=== PATIENT | male | born 1965 | race African-American/Black ===

== ENCOUNTER 2017-07-30 06:14 | Emergency (ER) | payer BC ==
[~2017-07-30] VITALS: Ht 180.3 cm; Wt 122.5 kg
[2017-07-30] MEDS ORDERED: 0.9 % SODIUM CHLORIDE 10 ML DISP.SYRIN. IV PRN (06:30)
[2017-07-30] MEDS ORDERED: IV NORMAL SALINE 1000ML BAG 1,000 ML IV SCH (06:30)
--- NOTE | 2017-07-30 06:36 | PHYS DOC ---
Past Medical History Past Medical History: Hypertension Past Surgical History: Other Additional Past Surgical Histo: rt arm, right knee Alcohol Use: Occasionally Drug Use: None Adult General Chief Complaint Chief Complaint: WEAKNESS/GENERALIZED HPI HPI Is a pleasant 51-year-old -[place] male with history of hypertension hyperlipidemia who presents with a one-week history of weakness that began after 2 episodes of chest pain. Patient describes chest pain that woke him from sleep about a week ago described as chest pressure in the left chest with radiation underneath the left breast the left minutes excellent. He describes 2 distinct episodes lasting about 30 minutes one of which he actually called EMS who was dispatched to his home. They did an EKG on the scene advised him to go to the hospital. He did not. He had a second episode later next night. He describes the chest pain is pressure with radiation again to the left shoulder and underneath the left breast. Described as a squeezing. It was moderate in nature lasting 30 minutes. He denies any nausea, vomiting, diarrhea, cough, URI symptoms, shortness of breath only fatigue. He said he says he is somewhat dizzy in the mornings as well if he does not eat food. Patient denies any prior events like this in the past. He denies any pulmonary embolism risk factors like travel, history of recent surgery, history of recent trauma, prior DVT or PE, history of estrogen use or exhaustion is form of steroids. Or immobilizations. Differential diagnosis for chest pain: Pericarditis, myocarditis, endocarditis, pneumothorax, pneumonia, aortic dissection, esophageal spasm, esophagitis, peptic ulcer disease, acute coronary syndrome, mediastinitis, Boerhaave syndrome , musculoskeletal chest wall pain, costochondritis, intercostal strain, rib fracture, pulmonary contusion, pneumonitis, pleural effusion, pericardial effusion, pericardial tamponode, and pleurisy. Upon arrival EKG completed, CMP, troponin, CBC, chest x-ray completed. Review of Systems Review of Systems Constitutional: Denies fever or chills [] Eyes: Denies change in visual acuity, redness, or eye pain [] HENT: Denies nasal congestion or sore throat [] Respiratory: Denies cough or shortness of breath [] Cardiovascular: No additional information not addressed in HPI [] GI: Denies abdominal pain, nausea, vomiting, bloody stools or diarrhea [] : Denies dysuria or hematuria [] Musculoskeletal: Denies back pain or joint pain [] Integument: Denies rash or skin lesions [] Neurologic: Denies headache, focal weakness or sensory changes [] Endocrine: Denies polyuria or polydipsia [] Current Medications Current Medications Current Medications Medications (Trade) Dose Ordered Sig/Marcia Start Time Stop Time Status Last Admin Dose Admin Aspirin (Children'S Aspirin) 324 mg 1X ONCE 07/30/17 06:45 07/30/17 06:46 DC 07/30/17 07:02 324 MG Sodium Chloride (Normal Saline Flush) 10 ml QSHIFT PRN 07/30/17 06:30 Allergies Allergies Allergies Coded Allergies Type Severity Reaction Last Updated Verified No Known Drug Allergies 09/02/16 No Physical Exam Physical Exam Of the vital signs recorded on the chart patient did be hypertensive. Without hypoxia or tachypnea. Constitutional: Well developed, well nourished, no acute distress, non-toxic appearance. [] HENT: Normocephalic, atraumatic, bilateral external ears normal, oropharynx moist, no oral exudates, nose normal. No carotid bruits noted [] Eyes: PERRLA, EOMI, conjunctiva normal, no discharge. [] Neck: Normal range of motion, no tenderness, supple, no stridor. [] Cardiovascular:Heart rate regular rhythm, no murmur [] Lungs & Thorax: Bilateral breath sounds clear to auscultation [] Abdomen: Bowel sounds normal, soft, no tenderness, no masses, no pulsatile masses. [] Skin: Warm, dry, no erythema, no rash. [] Back: No tenderness, no CVA tenderness. [] Extremities: No tenderness, no cyanosis, no clubbing, ROM intact, no edema. [] Neurologic: Alert and oriented X 3, normal motor function, normal sensory function, no focal deficits noted. [] Psychologic: Affect normal, judgement normal, mood normal. [] Current Patient Data Vital Signs Vital Signs Date Time Temp Pulse Resp B/P (MAP) Pulse Ox O2 Delivery O2 Flow Rate FiO2 07/30/17 07:15 58 142/93 (109) 99 Room Air 07/30/17 06:25 97.8 18 97.8 Lab Values Laboratory Tests Test 07/30/17 06:20 07/30/17 07:20 Urine Collection Type Unknown Urine Color Yellow Urine Clarity Clear Urine pH 6.5 Urine Specific [place] <=1.005 Urine Protein Negative mg/dL (NEG-TRACE) Urine Glucose (UA) Negative mg/dL (NEG) Urine Ketones (Stick) Negative mg/dL (NEG) Urine Blood Negative (NEG) Urine Nitrite Negative (NEG) Urine Bilirubin Negative (NEG) Urine Urobilinogen Dipstick 0.2 mg/dL (0.2 mg/dL) Urine Leukocyte Esterase Negative (NEG) Urine RBC Rare /HPF (0-2) Urine WBC Rare /HPF (0-4) Urine Squamous Epithelial Cells None /LPF Urine Bacteria 0 /HPF (0-FEW) Urine Opiates Screen Neg (NEG) Urine Methadone Screen Neg (NEG) Urine Barbiturates Neg (NEG) Urine Phencyclidine Screen Neg (NEG) Urine Amphetamine/Methamphetamine Neg (NEG) Urine Benzodiazepines Screen Neg (NEG) Urine Cocaine Screen Neg (NEG) Urine Cannabinoids Screen Neg (NEG) Urine Ethyl Alcohol Neg (NEG) White Blood Count 3.2 x10^3/uL (4.0-11.0) L Red Blood Count 5.23 x10^6/uL (4.30-5.70) Hemoglobin 12.0 g/dL (13.0-17.5) L Hematocrit 37.6 % (39.0-53.0) L Mean Corpuscular Volume 72 fL (79-100) L Mean Corpuscular Hemoglobin 23 pg (25-35) L Mean Corpuscular Hemoglobin Concent 32 g/dL (31-37) Red Cell Distribution Width 15.3 % (11.5-14.5) H Platelet Count 106 x10^3/uL (140-400) L Neutrophils (%) (Auto) 52 % (31-73) Lymphocytes (%) (Auto) 33 % (24-48) Monocytes (%) (Auto) 12 % (0-9) H Eosinophils (%) (Auto) 2 % (0-3) Basophils (%) (Auto) 0 % (0-3) Neutrophils # (Auto) 1.7 x10^3uL (1.8-7.7) L Lymphocytes # (Auto) 1.1 x10^3/uL (1.0-4.8) Monocytes # (Auto) 0.4 x10^3/uL (0.0-1.1) Eosinophils # (Auto) 0.1 x10^3/uL (0.0-0.7) Basophils # (Auto) 0.0 x10^3/uL (0.0-0.2) Platelet Estimate Pending Sodium Level 142 mmol/L (136-145) Potassium Level 3.8 mmol/L (3.5-5.1) Chloride Level 106 mmol/L (98-107) Carbon Dioxide Level 27 mmol/L (21-32) Anion Gap 9 (6-14) Blood Urea Nitrogen 10 mg/dL (8-26) Creatinine 0.9 mg/dL (0.7-1.3) Estimated GFR (Cockcroft-Gault) 107.2 Glucose Level 91 mg/dL (70-99) Calcium Level 8.6 mg/dL (8.5-10.1) Magnesium Level 1.9 mg/dL (1.8-2.4) Total Bilirubin 0.5 mg/dL (0.2-1.0) Direct Bilirubin 0.1 mg/dL (0.0-0.2) Aspartate Amino Transferase (AST) 25 U/L (15-37) Alanine Aminotransferase (ALT) 33 U/L (16-63) Alkaline Phosphatase 100 U/L (46-116) Creatine Kinase 321 U/L (39-308) H Creatine Kinase MB (Mass) 2.2 ng/mL (0.0-3.6) Creatine Kinase MB Relative Index 0.7 % (0-4) Troponin I Quantitative 0.020 ng/mL (0.000-0.055) HQ-Voo-B-Type Natriuretic Peptide 54 pg/mL (0-124) Total Protein 6.6 g/dL (6.4-8.2) Albumin 3.4 g/dL (3.4-5.0) Lipase 115 U/L (73-393) Thyroid Stimulating Hormone (TSH) 0.483 uIU/mL (0.358-3.74) Laboratory Tests 07/30/17 07:20 Laboratory Tests 07/30/17 07:20 EKG EKG []EKG timed 6:29 AM read by me Dr. Fan heart rate of 55 sinus bradycardia with VA interval of 200, QRS of 86 which is within normal limits. Patient is a QTc of 419 which is normal. Patient is concerning systemic changes in the anterior leads with some upsloping of his ST segment with a T-wave inversion in V1 and V2 V3. There is no clear J-point elevation consistent with acute corneal STEMI but we will repeat this EKG in 15 minutes to see if there is an addendum changes. Patient also demonstrates some T-wave flattening and mild inversion in lead 3 there is no clear reciprocal changes. Radiology/Procedures Radiology/Procedures [] [address] [place] [address] IMAGING REPORT Signed PATIENT: ORESTES LADD ACCOUNT: [id number] : 1965 LOCATION: ER AGE: 51 SEX: M EXAM STATUS: REG ER ORD. PHYSICIAN: JOSE FAN MD REASON: chest pain PROCEDURE: CHEST PA & LATERAL Chest, 2 views, 07/30/2017: History: Chest pain Comparison is made to a study from 09/14/2010. The heart size and pulmonary vascularity are normal. No pulmonary infiltrates are seen. There is no evidence of pleural fluid. Moderate spurring is present in the spine. IMPRESSION: No acute cardiopulmonary abnormality is detected. DICTATED and SIGNED BY: MARGARITA SANCHEZ MD DATE: 07/30/17 0707 CC: JOSE FAN MD; LISSETT MILES Course & Med Decision Making Course & Med Decision Making Pertinent Labs and Imaging studies reviewed. (See chart for details) Differential diagnosis for chest pain: Pericarditis, myocarditis, endocarditis, pneumothorax, pneumonia, aortic dissection, esophageal spasm, esophagitis, peptic ulcer disease, acute coronary syndrome, mediastinitis, Boerhaave syndrome , musculoskeletal chest wall pain, costochondritis, intercostal strain, rib fracture, pulmonary contusion, pneumonitis, pleural effusion, pericardial effusion, pericardial tamponode, and pleurisy. Considered upon arrival. Patient EKG is abnormal but no clear signs of an ST segment elevation UT. Patient's urine drug and is negative for specific stimulant drugs like cocaine or PCP, patient also has a negative urinalysis with only slight red blood cells in. Patient tells me that their symptoms given during CC are improved. We reviewed labs at 7:30 AM pending radiology report. Patient tells me that their symptoms given during CC are improved. Time is now 8 :31 AM second EKG timed 7:50 AM again demonstrates heart rate of 52 which is sinus bradycardia read by me demonstrates nonseptic T-wave inversion in the lateral leads which is again not new there is slight ST segment changes in the anterior leads as well although not changed no J-point elevation is noted. Patient has no symptoms at this time. Patient's troponin is negative patient CK is mildly elevated but given the duration of symptoms doubt that this is an acute coronary event. Patient's TSH is normal patient's CBC demonstrates mild anemia mild problems at appearing and mild leukopenia. I'm not quite sure the clinical significance of this finding but it does not put him at increased risk for infection. Patient is considered low risk by History: Highly suspicious 2 points moderately suspicious 1. slightly suspicious 0 point EKG: ST segment depression 2. nonspecific repolarization disturbance 1. normal 0 point Age: Greater than 65 2 points, 65-45 1., less than 45 years old 0 points Risk factors:> 3 risk factors 2 points, 1-2 risk factors one point, no risk factors 0 point Troponin: > 2 times normal 2 points, 1-2 times normal 1., normal limits 0 point Total score: Score % pts MACE/n MACE Policy 0-3 32% 1.9% 0.05% Discharge 4-6 51% 413/3136 13% 1.3% Observation Risk management 7-10 17% 518/1045 50% 2.8% Observation Treatment, CAG[] at patient under differential diagnosis of his chest pain although he is fatigued and obvious signs of chest injury today I will admit that he probably still has heart disease although it's not measured by this particular evaluation I think outpatient evaluation and follow-up with production team member very appropriate. Campbell Disclaimer Campbell Disclaimer This electronic medical record was generated, in whole or in part, using a voice recognition dictation system. Departure Departure Impression: Primary Impression: Chest pain Additional Impressions: Leukopenia Thrombocytopenia Anemia Disposition: 01 HOME, SELF-CARE Condition: IMPROVED Referrals: LISSETT MILES (PCP) Patient Instructions: Chest Pain (Nonspecific) Additional Instructions: My discharge plan Is return for any new or increasing symptoms or feel any question concerns. Although you have low risk chest pain given the duration of her symptoms you have an abnormal EKG and a store that's concerning. I would advise a follow-up to primary care doctor physician who can see you this week to arrange for outpatient evaluation by cardiology. Follow up: In addition patient is asked to followup with their primary doctor, within a week for followup examination and to address patient's ongoing medical conditions. Patient is advised that in the Emergency Department primary complaints are addressed and only in light of known signs and symptoms. Patient should return immediately to the emergency department if new signs and symptoms develop or patient's condition worsens in any way. At time of discharge patient was in stable condition and had verbalized understanding of the discharge instructions. Scripts Aspirin (ASPIRIN EC) 325 Mg Tablet.dr 1 TAB PO DAILY, #30 TAB 5 Refills Prov: JOSE FAN MD 07/30/17 Problem Qualifiers JOSE FAN MD Jul 30, 2017 06:36
--- NOTE | 2017-07-30 06:38 | EKG ---
[facility] [address] [place] [address] Test Date: 2017-07-30 Test Time: 06:29:49 Pat Name: ORESTES LADD Department: Room: Gender: M [place] Former: : 1965 Requested By: JOSE FAN Order Number: [id number] Reading MD: Demetrius Dunham Measurements Intervals [place] Rate: 55 P: 44 VT: 200 QRS: -11 QRSD: 86 T: -12 QT: 436 QTc: 419 Interpretive Statements SINUS RHYTHM QRS(T) CONTOUR ABNORMALITY CONSIDER ANTEROSEPTAL MYOCARDIAL DAMAGE T ABNORMALITY IN ANTERIOR LEADS ABNORMAL ECG Electronically Signed On 08-04-2017 10:20:13 CDT by Demetrius Dunham
[2017-07-30] MEDS ORDERED: ASPIRIN CHEWABLE 81 MG TABLET. PO ONE (06:45)
[2017-07-30 06:58] LABS: BILIRUBIN,URINE NEGATIVE (NEG); GLUCOSE,URINE NEGATIVE (NEG); NITRITE,URINE NEGATIVE (NEG); PH,URINE 6.5; PROTEIN,URINE NEGATIVE (NEG-TRACE); UROBILINOGEN,URINE 0.2 mg/dL (0.2 mg/dL)
[2017-07-30 07:02] LABS: BARBITURATES NEG (NEG); BENZODIAZEPINES NEG (NEG); CANNABINOIDS NEG (NEG); COCAINE NEG (NEG); METHADONE NEG (NEG); OPIATES NEG (NEG); PHENCYCLIDINE NEG (NEG)
--- NOTE | 2017-07-30 07:11 | RAD ---
Chest, 2 views, 07/30/2017: History: Chest pain Comparison is made to a study from 09/14/2010. The heart size and pulmonary vascularity are normal. No pulmonary infiltrates are seen. There is no evidence of pleural fluid. Moderate spurring is present in the spine. IMPRESSION: No acute cardiopulmonary abnormality is detected.
[2017-07-30 07:16] LABS: RBC,URINE RARE /HPF (0-2); WBC,URINE RARE /HPF (0-4)
[2017-07-30 07:17] LABS: BACTERIA,URINE 0 /HPF (0-FEW)
[2017-07-30 07:30] LABS: BASO % 0 % (0-3); EOS % 2 % (0-3); HEMATOCRIT 37.6 % (39.0-53.0); LYMPH # 1.1 x10^3/uL (1.0-4.8); LYMPH % 33 % (24-48); MEAN CORPUSCULAR HEMOGLOBIN 23 pg (25-35); MEAN CORPUSCULAR HGB CONC 32 g/dL (31-37); MEAN CORPUSCULAR VOLUME 72 fL (79-100); MONO % 12 % (0-9); NEUT % 52 % (31-73); PLATELET COUNT 106 x10^3/uL (140-400); RED BLOOD COUNT 5.23 x10^6/uL (4.30-5.70); RED CELL DISTRIBUTION WIDTH 15.3 % (11.5-14.5); WHITE BLOOD COUNT 3.2 x10^3/uL (4.0-11.0)
[2017-07-30 07:45] LABS: CALCIUM 8.6 mg/dL (8.5-10.1); CREATININE 0.9 mg/dL (0.7-1.3); GFR 107.2; POTASSIUM 3.8 mmol/L (3.5-5.1)
[2017-07-30 07:48] LABS: ALBUMIN 3.4 g/dL (3.4-5.0); DIRECT BILIRUBIN 0.1 mg/dL (0.0-0.2); MAGNESIUM 1.9 mg/dL (1.8-2.4); TOTAL BILIRUBIN 0.5 mg/dL (0.2-1.0); TOTAL PROTEIN 6.6 g/dL (6.4-8.2)
[2017-07-30 08:02] LABS: CKMB MASS 2.2 ng/mL (0.0-3.6)
--- NOTE | 2017-07-30 08:07 | EKG ---
[facility] [address] [place] [address] Test Date: 2017-07-30 Test Time: 07:50:25 Pat Name: ORESTES LADD Department: Room: Gender: M Medical Office Receptionist: : 1965 Requested By: JOSE FAN Order Number: [id number] Reading MD: Demetrius Dunham Measurements Intervals [place] Rate: 52 P: 45 NM: 200 QRS: -8 QRSD: 88 T: -5 QT: 476 QTc: 445 Interpretive Statements SINUS RHYTHM Electronically Signed On 08-04-2017 10:20:21 CDT by Demetrius Dunham
[2017-07-30] MEDS ORDERED: ASPI325T11 PO (08:40)
[2017-07-30 09:13] VITALS: BP 131/93
[2017-07-30 11:20] LABS: HYPOCHROMIA SLIGHT; PLT ESTIMATE DECREASED (ADEQUATE)
[2017-07-30 11:21] LABS: MICROCYTOSIS SLIGHT
== END 2017-07-30 09:14 | disposition home or self-care (01) ==
LOC: ER 06:14
DX: R07.9 Chest pain, unspecified (principal); D72.819 Decreased white blood cell count, unspecified; D64.9 Anemia, unspecified; D69.6 Thrombocytopenia, unspecified; I10 Essential (primary) hypertension; E78.5 Hyperlipidemia, unspecified
CPT/HCPCS: 36415; 71020; 80048; 80076; 80307; 81001; 82553; 83690; 83735; 83880; 84443; 84484; 85025; 93005; 96360; 99285; J7030; G0479

== ENCOUNTER → 2017-07-31 | Outpatient (CLI) | payer BC ==
[2017-07-30 09:13] VITALS: BP 131/93
[~2017-07-31] MED LIST: ASPI325T11 PO
[2017-07-31] MEDS: methylPREDNISolone ACETATE 40 MG/ML VIAL. INT ART ONE (15:30)
[2017-07-31] MEDS: BUPIVACAINE MPF 0.5% 10 ML VIAL for KCIC. IJ ONE (15:30)
[2017-07-31] MEDS: LIDOCAINE 1% Multi-Dose 20 ML VIAL. ID ONE (15:30)
[2017-07-31] MEDS: IOHEXOL 300 MG/ML 50 ML VIAL. INT ART ONE (15:30)
--- NOTE | 2017-07-31 15:57 | KCIC ---
INDICATION: Right hip pain. TECHNIQUE: The procedure, its risk and benefits, and potential complications were discussed with the patient. All questions were answered. Written consent proceed was obtained. Timeout procedure was performed. Patient was prepped and draped in usual manner. 1 percent lidocaine was administered locally. 22-gauge spinal needle was positioned into the right hip joint. Positioning was confirmed with 4 mL of Omnipaque 300. Subsequently, a mixture of 4 mL of lidocaine, 4 mL of Marcaine, and 80 mg of Depo-Medrol was injected into the joint space. Images documenting needle and contrast position were stored. The needle was withdrawn. The patient tolerated the procedure well. He was discharged in stable condition. Fluoroscopy time is 26 seconds. Image count is 2. IMPRESSION: Right hip steroid injection under fluoroscopic guidance. Electronically signed by: Nilton Coker MD (07/31/2017 3:54 PM) [email or web address]
== END | disposition home or self-care (01) ==
LOC: KCIC 14:48
PROVIDERS: ATTEND Nurse Practitioner Gerontology
DX: M25.551 Pain in right hip (principal)
CPT/HCPCS: 20610; 77002; J1030; Q9967